=== PATIENT | male | born 1995 | race African-American/Black ===

== ENCOUNTER 2017-05-22 15:06 | Emergency (ER) | payer SELFPAY ==
[~2017-05-22] VITALS: Ht 175.3 cm; Wt 75.0 kg
[2017-05-22] MEDS ORDERED: SODIUM CHLORIDE 0.9% 1,000 ML IV ONE (15:47)
[2017-05-22 16:14] LABS: BASOPHILS % 0.8 % (0.0-2.0); EOSINOPHILS % 1.8 % (0.0-5.0); HEMATOCRIT. 46.1 % (42.0-52.0); HEMOGLOBIN. 15.7 g/dL (14.0-18.0); LYMPHOCYTES % 25.1 % (20.0-50.0); MEAN CORPUSCULAR HEMOGLOBIN 30.7 pg (28.0-32.0); MEAN PLATELET VOLUME 8.3 fl (7.4-10.4); MONOCYTES % 6.4 % (2.0-8.0); NEUTROPHILS % 65.9 % (40.0-76.0); PLATELET 175 x1000/uL (130-400); RED BLOOD CELL COUNT 5.12 mill/uL (4.7-6.1); RED CELL DISTRIBUTION WIDTH 12.9 % (11.6-14.6)
[2017-05-22 16:23] LABS: CARBON DIOXIDE 32 mEq/L (21-32); CHLORIDE 106 mEq/L (98-107)
[2017-05-22 17:36] VITALS: BP 120/83
== END 2017-05-22 17:37 | disposition home or self-care (01) ==
LOC: ER 15:18
DX: R55 Syncope and collapse (principal); R53.1 Weakness
CPT/HCPCS: 36415; 80053; 85025; 93005; 99284; Z7610; J7030